=== PATIENT | male | born 1960 | race Caucasian/White ===

== ENCOUNTER 2017-05-25 15:53 | Emergency (ER) | payer SELFPAY ==
[2017-05-25 15:56] VITALS: BP 132/87; PULSE 87; RESP 16; TEMP 98.3; O2SAT 97
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
[2017-05-25] MEDS ORDERED: SODIUM CHLORIDE 0.9% FLUSH 10 ML FLUSH IVF PRN (16:45)
[2017-05-25 16:48] VITALS: O2SAT 98
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
[2017-05-25 17:11] LABS: AUTOMATED NEUTROPHIL # 3.8 TH/MM3 (1.8-7.7); BASOPHIL # 0.1 TH/MM3 (0-0.2); BASOPHIL % 0.8 % (0.0-2.0); EOSINOPHIL # 0.3 TH/MM3 (0-0.4); EOSINOPHIL % 4.7 % (0.0-4.0); HEMATOCRIT 40.8 % (39.0-51.0); LYMPH % 28.2 % (9.0-44.0); LYMPHOCYTE # 1.8 TH/MM3 (1.0-4.8); MEAN CELL VOLUME 89.6 FL (80.0-100.0); MEAN CORPUSCULAR HEMOGLOBIN 32.2 PG (27.0-34.0); NEUT % 58.3 % (16.0-70.0); PLATELET COUNT 245 TH/MM3 (150-450); RED BLOOD COUNT 4.55 MIL/MM3 (4.50-5.90); WHITE BLOOD COUNT 6.5 TH/MM3 (4.0-11.0)
[2017-05-25 17:12] LABS: HEMO FLAGS AUTO DIFF
[2017-05-25 17:26] LABS: ALT (GPT) 21 U/L (12-78); ANION GAP 7 MEQ/L (5-15); AST (GOT) 16 U/L (15-37); BICARBONATE 24.5 MEQ/L (21.0-32.0); BLOOD UREA NITROGEN 13 MG/DL (7-18); CHLORIDE 110 MEQ/L (98-107); GLOMERULAR FILTRATION RATE 58 ML/MIN (>89); MAGNESIUM 2.3 MG/DL (1.5-2.5); SODIUM (NA) 141 MEQ/L (136-145)
[2017-05-25 17:28] LABS: APTT (PATIENT) 27.9 SEC (24.3-30.1)
[2017-05-25 17:30] LABS: ALKALINE PHOSPHATASE 85 U/L (45-117); CREATINE KINASE 137 U/L (39-308); TOTAL BILIRUBIN ADULT 0.5 MG/DL (0.2-1.0)
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
[2017-05-25 17:46] LABS: CKMB 2.3 NG/ML (0.5-3.6)
[2017-05-25 17:48] LABS: PLATELET ESTIMATE SMEAR NORMAL (NORMAL); PLATELET MORPHOLOGY NORMAL (NORMAL); SCAN/DIFF AUTO DIFF CONFIRMED
[2017-05-25] MEDS ORDERED: FUROSEMIDE 40 MG/4 ML VIAL IV PUSH ONE (18:15)
[2017-05-25] MEDS ORDERED: FURO20TA PO (18:32)
--- NOTE | 2017-05-26 17:12 | EKG ---
Date Performed: 05/25/2017 Time Performed: 16:50:50 PTAGE: 56 years EKG: Sinus rhythm NORMAL ECG NO PREVIOUS TRACING DOCTOR: Denisha Edwards Interpretating Date/Time 05/26/2017 17:09:55
== END 2017-05-25 18:52 | disposition home or self-care (01) ==
LOC: NEPD 15:53
DX: R60.9 Edema, unspecified (principal); Z72.0 Tobacco use; Z88.0 Allergy status to penicillin; Z79.899 Other long term (current) drug therapy
CPT/HCPCS: 71010; 80053; 82550; 82552; 83735; 83880; 84484; 85025; 85610; 85730; 93005; 93970; 96374; 99285; J1940

== ENCOUNTER 2017-06-30 00:16 | Emergency (ER) | payer SELFPAY ==
[~2017-06-30] VITALS: Ht 193 cm; Wt 94.0 kg
[~2017-06-30 00:16] MED LIST: FURO20TA PO
[2017-06-30 00:19] VITALS: BP 148/90; PULSE 84; RESP 15; TEMP 98.1; O2SAT 96
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
== END 2017-06-30 01:55 | disposition home or self-care (01) ==
LOC: NEPD 00:16
DX: B35.3 Tinea pedis (principal); Z59.0 Homelessness
CPT/HCPCS: 99282